=== PATIENT | male | born 1990 | race Two or more races ===

== ENCOUNTER 2021-07-11 15:55 | Emergency (ER) | payer OTHER ==
[~2021-07-11] VITALS: Ht 185.4 cm; Wt 108.9 kg
[2021-07-11 15:55] VITALS: BP 142/96
[2021-07-11] MEDS ORDERED: PERCOT PO (20:15)
== END 2021-07-11 20:22 | disposition home or self-care (01) ==
LOC: EDBD 15:55 → ER 15:55
DX: S16.1XXA Strain of muscle, fascia and tendon at neck level, initial encounter (principal); V43.52XA Car driver injured in collision with other type car in traffic accident, initial encounter; Y93.89 Activity, other specified; Y92.89 Other specified places as the place of occurrence of the external cause; Y99.8 Other external cause status
CPT/HCPCS: 70450; 71250; 72125; 74176